=== PATIENT | female | born 1980 | race Caucasian/White ===

== ENCOUNTER 2018-12-18 19:41 | Emergency (ER) | payer OTHER ==
[~2018-12-18] VITALS: Ht 165.1 cm; Wt 82.1 kg
--- OUTSIDE RECORDS SUMMARY | 2018-12-18 19:43 | XMS REPORT ---
Author Author [facility] Address Unknown Phone Unavailable Care Team Providers Care Video Poker Floorman Name Role Phone Unavailable Unavailable Payers Payer Name Policy Type Policy Number Effective Date Expiration Date Problems This patient has no known problems. Allergies, Adverse Reactions, Alerts Allergy Name Allergy Type Status Severity Reaction(s) Onset Date Inactive Date Treating Clinician Comments Phenytoin Sodium Extended DA Active U 2018-01-15 00:00:00 phenytoin sodium DA Active U 2018-01-15 00:00:00 carbamazepine DA Active U 2018-01-15 00:00:00 Phenytoin Sodium Extended DA Active U 2011-10-18 00:00:00 phenytoin sodium DA Active U 2011-10-18 00:00:00 carbamazepine DA Active U 2011-10-18 00:00:00 Medications This patient has no known medications. Results Test Description Test Time Test Comments Text Results Atomic Results Result Comments BRIDGETTE FINCH 2018-01-19 16:37:00 RUN DATE: 01/20/18 [facility] PAGE 1 RUN TIME: 1614 Specimen Inquiry RUN USER: INTERFACE PATIENT: DEBBIE ALLEN LOC: [place] U #: [id number] AGE/SX: 37/F ROOM: RE01/15/18REG DR: Parker Pal MD : 81 BED: DIS: STATUS: [facility] TLOC: SPEC #: [id number] RECD: 01/15/18 STATUS: HAYLEY PATTEN #: [id number] REJI: 01/15/18- SUBM DR: Parker Pal MD ENTERED: 01/16/18 SP TYPE: HARIKA BOB DR: ORDERED: CYTOLOGY/SACCOM CODES: [id number] - OVARY, NOS PROCEDURES: CYTOLOGY/SACCOM (Incomplete) TISSUES: OVARY, NOS - RIGHT OVARIAN CYST FLUID CLINICAL HISTORY 37 year old, endometriosis (wpd) FINAL DIAGNOSIS Right ovarian cyst fluid, direct smears: - no malignant cells identified - macrophages present Tissue code 1 CPT code(s): 87177 [facility] GROSS DESCRIPTION The specimen is received in a container, labeled with the patient's name and designated "right ovarian cyst fluid" and consists of 30 cc of yellow fluid. Two smears were prepared. No cell block was prepared. hj/wpd 01/16/18 @ 5247 MICROSCOPIC DESCRIPTION COMMENT: The corresponding surgical pathology [id number] showed: Right uterosacral ligament endometriosis, excision: - smooth muscle with focal fibrosis Bilateral fallopian tubes, bilateral salpingectomy: - fallopian tubes with benign paratubal cysts Endometrial polyp, polypectomy: - polypoid fragment of benign inactive endometrium Endometrium, curettage: CONTINUED ON NEXT PAGE RUN DATE: 01/20/18 [facility] PAGE 2 RUN TIME: 1614 Specimen Inquiry RUN USER: INTERFACE SPEC #: [id number] PATIENT: DEBBIE ALLEN #[id number] (Continued) MICROSCOPIC DESCRIPTION (Continued) - benign endometrium with glandular and stromal breakdown and focal progestin-like changes - abundant mucous lsh Signed Coral Perez MD 01/19/18 1637 END OF REPORT UTEROSACRAL LIGAMENT 2018-01-19 16:28:00 RUN DATE: 01/20/18 [facility] PAGE 1 RUN TIME: 734 Specimen Inquiry RUN USER: INTERFACE PATIENT: DEBBIE ALLEN LOC: [facility] U #: [id number] AGE/SX: 37/F ROOM: RE01/15/18REG DR: Parker Pal MD : 81 BED: DIS: STATUS: [facility] [place] TLOC: SPEC #: [id number] RECD: 01/15/18 STATUS: HAYLEY PATTEN #: [id number] REJI: 01/15/18- DR: Parker Pal MD ENTERED: 01/16/18 SP TYPE: UTEROSACRA OTHR DR: ORDERED: LEVEL IV/4 CODES: [id number] - UTERINE SEROSA [id number] - ENDOMETRIUM, NO [id number] - FALLOPIAN TUBE PROCEDURES: LEVEL IV (Incomplete) TISSUES: UTERINE SEROSA - RIGHT UTEROSACRAL LIGAMENT FALLOPIAN TUBE, NOS - BILATERAL FALLOPIAN TUBES ENDOMETRIUM, NOS - ENDOMETRIAL POLYP AND CURETTINGS CLINICAL HISTORY 37 year old, endometriosis (wpd) FINAL DIAGNOSIS Right uterosacral ligament endometriosis, excision: - smooth muscle with focal fibrosis Bilateral fallopian tubes, bilateral salpingectomy: - fallopian tubes with benign paratubal cysts Endometrial polyp, polypectomy: - polypoid fragment of benign inactive endometrium Endometrium, curettage: - benign endometrium with glandular and stromal breakdown and focal progestin-like changes - abundant mucous Tissue code 1 CPT code(s): 81300 x3, 36815 x2 [facility] GROSS DESCRIPTION ANATOMIC SOURCE OF TISSUE (per Requisition): 1. Right uterosacral ligament endometriosis 2. Bilateral fallopian tubes 3. Cytology CONTINUED ON NEXT PAGE RUN DATE: 01/20/18 [facility] PAGE 2 RUN TIME: 0735 Specimen Inquiry RUN USER: INTERFACE SPEC #: [id number] PATIENT: DEBBIE ALLEN #[id number] (Continued) GROSS DESCRIPTION (Continued) 4. Endometrial polyp 5. Endometrial curettings Each specimen is labeled with the patient's name and medical record number. Specimen #1 is designated "right uterosacral ligament endometriosis" and consists of a 0.5 cm bennett tissue and is submitted in A. Specimen #2 is designated "bilateral fallopian tubes" and consists of two segments of unoriented fallopian tubes with fimbriae attached. The first segment measures 4 x 0.7 x 0.5 cm. The entire fimbria and two cross- sections of the tube are submitted in B. The second segment of fallopi an tube with fimbria measures 8 x 0.6 x 0.6 cm. The entire fimbria and two cross-sections of the tube are submitted in C. Specimen #3 is received as Cytology, see Cytology Report, [id number]. Specimen #4 is designated "endometrial polyp" and consists of a 0.2 cm bennett tissue and is submitted in D. Specimen #5 is designated "endometrial curettings" and consists of small portions of red tissue and semi-translucent mucoid material on a piece of Telfa pad aggregating to 1.5 cc and is submitted in toto in E. chelsea/wpd 01/16/18 @ 1034 Signed Coral Perez MD 01/19/18 1628 END OF REPORT
[2018-12-18] MEDS ORDERED: KETOROLAC TROMETHAMINE 30 MG/ML VIAL IV STA (19:57)
[2018-12-18] MEDS ORDERED: SODIUM CHLORIDE 0.9% 1000ML 1,000 ML IV SCH (20:00)
[2018-12-18] MEDS ORDERED: SODIUM CHLORIDE 0.9% 1000ML 1,000 ML ONE (20:11)
[2018-12-18] MEDS ORDERED: KETOROLAC TROMETHAMINE 30 MG/ML VIAL ONE (20:11)
[2018-12-18] MEDS ORDERED: SODIUM CHLORIDE 0.9% 50ML 50 ML ONE (20:30)
[2018-12-18] MEDS ORDERED: IOPAMIDOL 370 MG/ML 200 ML INFUS..BTL INJ ONE (20:30)
--- NOTE | 2018-12-18 21:14 | Diagnostic Imaging Report ---
EXAM: CT Abdomen and Pelvis WITH contrast INDICATION: Left lower quadrant pain ^[id number] ^2046 COMPARISON: None. TECHNIQUE: Abdomen and pelvis were scanned utilizing a multidetector helical scanner from the lung base to the pubic symphysis after administration of IV contrast. Coronal and sagittal reformations were obtained. Dose modulation, iterative reconstruction, and/or weight based adjustment of the mA/kV was utilized to reduce the radiation dose to as low as reasonably achievable. Routine protocol was performed. Scan was performed when during portal venous phase. IV CONTRAST: 100 mL of Isovue-370 ORAL CONTRAST: None COMPLICATIONS: None RADIATION DOSE: Total DLP: 702.17 mGy*cm Estimated effective dose: (DLP x 0.015 x size factor) mSv CTDIvol has been reviewed. It is below the limits set by the Radiation Protocol Committee (RPC). FINDINGS: LINES and TUBES: None. LOWER THORAX: Unremarkable. HEPATOBILIARY: Hepatomegaly. Several scattered subcentimeter hypodensities are too small to characterize. No hepatic mass. No biliary ductal dilation. GALLBLADDER: Cholelithiasis. No wall thickening. SPLEEN: No splenomegaly. PANCREAS: No focal masses or ductal dilatation. ADRENALS: No adrenal nodules KIDNEYS/URETERS: Kidneys enhance symmetrically. No hydronephrosis. No renal mass. Bilateral subcentimeter hypodensities which are too small to characterize. No stones. GI TRACT: No abnormal distention or evidence of bowel obstruction. Colonic wall thickening and pericolonic colonic inflammation in left lower quadrant. Scattered colonic diverticula. Appendix is normal. PELVIC ORGANS/BLADDER: Unremarkable. LYMPH NODES: No lymphadenopathy. VESSELS: Portal vein distention up to 1.5 cm. Otherwise, unremarkable. PERITONEUM / RETROPERITONEUM: No free air or fluid. Left lower quadrant peritoneal thickening adjacent to the inflamed colon. BONES: Unremarkable. SOFT TISSUES: Unremarkable. IMPRESSION: 1. Left lower quadrant diverticulitis. No evidence of perforation or abscess formation. 2. Hepatomegaly. Multiple hepatic and renal too small to characterize hypodensities. Signed by: Dr. Edgar Cabezas MD on 12/18/2018 9:11 PM
[2018-12-18] MEDS ORDERED: CIPROFLOXACIN 500 MG TAB ONE (21:26)
--- NOTE | 2018-12-18 21:39 | NUR ---
PT REFUSED CIPRO BC SHE SPOKE WITH HER SISTER WHO IS A NURSE PRACTITIONER AND A SIDE EFFECT OF CIPRO IS TINNITUS
== END 2018-12-18 21:37 | disposition home or self-care (01) ==
LOC: FSED 19:41
DX: R10.32 Left lower quadrant pain (principal); K80.20 Calculus of gallbladder without cholecystitis without obstruction; K57.12 Diverticulitis of small intestine without perforation or abscess without bleeding
CPT/HCPCS: 74177; 80048; 80076; 82553; 84484; 85025; 99284; J1885; J7030; Q9967